=== PATIENT | female | born 2005 | race Two or more races ===

== ENCOUNTER → 2024-05-05 | Outpatient (CLI) | payer BC, SELFPAY ==
--- NOTE | 2024-05-05 | XR_ITS ---
Examination: Scoliosis survey 4 views TECHNIQUE: AP lateral thoracic AP lateral lumbar spine 4 views Exam date and time: May 05, 2024 1300 hours FINDINGS: Upper thoracic dextroscoliosis 4 degrees Thoracolumbar levoscoliosis 6 degrees No fracture No segmentation anomalies IMPRESSION: Scoliosis as above
== END | disposition home or self-care (01) ==
PROVIDERS: PCP Nurse Practitioner; Referring Provider Chiropractor; Visit Provider Chiropractor
DX: M41.84 Other forms of scoliosis, thoracic region (principal); M41.85 Other forms of scoliosis, thoracolumbar region
CPT/HCPCS: 72083